=== PATIENT | male | born 1950 | race Caucasian/White ===

== ENCOUNTER 2020-06-16 12:50 | Outpatient (RCR) | payer BC, SELFPAY | END 2020-07-29 13:21 | disposition home or self-care (01) | LOC: HO.WCC 12:50 | PROVIDERS: PCP Nurse Practitioner Family; Visit Provider Physician Assistant | DX: I87.311 Chronic venous hypertension (idiopathic) with ulcer of right lower extremity (principal); L97.812 Non-pressure chronic ulcer of other part of right lower leg with fat layer exposed; Z87.891 Personal history of nicotine dependence | CPT/HCPCS: 11042; 97597; 99212 ==